=== PATIENT | male | born 1980 | race Caucasian/White ===

== ENCOUNTER 2018-02-14 08:53 | Inpatient (IN) | payer SELFPAY ==
[2018-02-14 09:14] LABS: ADD MAN DIFF? NO
[2018-02-14 09:17] LABS: BASO # 0.1 x10^3/uL (0.0-0.2); BASO % 1 % (0-3); EOS # 0.4 x10^3/uL (0.0-0.7); EOS % 4 % (0-3); HEMATOCRIT 49.8 % (39.0-53.0); HEMOGLOBIN 16.7 g/dL (13.0-17.5); LYMPH # 2.1 x10^3/uL (1.0-4.8); LYMPH % 21 % (24-48); MEAN CORPUSCULAR HEMOGLOBIN 30 pg (25-35); MEAN CORPUSCULAR HGB CONC 34 g/dL (31-37); MEAN CORPUSCULAR VOLUME 89 fL (79-100); MONO # 0.9 x10^3/uL (0.0-1.1); MONO % 9 % (0-9); NEUT # 6.6 x10^3uL (1.8-7.7); NEUT % 66 % (31-73); PLATELET COUNT 459 x10^3/uL (140-400); RED BLOOD COUNT 5.61 x10^6/uL (4.30-5.70); RED CELL DISTRIBUTION WIDTH 13.8 % (11.5-14.5)
[2018-02-14 09:17] LABS: TROPONIN BY ISTAT 0.39 ng/ml (<0.08)
[2018-02-14 09:33] LABS: ANION GAP 8 (6-14); BLOOD UREA NITROGEN 19 mg/dL (8-26); BUN/CREATININE RATIO 15 (6-20); CARBON DIOXIDE 29 mmol/L (21-32); CHLORIDE 102 mmol/L (98-107); CREATININE 1.3 mg/dL (0.7-1.3); GFR 62.5; GLUCOSE 96 mg/dL (70-99); POTASSIUM 4.4 mmol/L (3.5-5.1); SODIUM 139 mmol/L (136-145)
[2018-02-14 09:34] LABS: INR 1.1 (0.8-1.1); PROTHROMBIN TIME PATIENT 13.5 SEC (11.7-14.0)
[2018-02-14 09:37] LABS: D-DIMER 0.34 ug/mlFEU (0.00-0.50)
[2018-02-14 09:39] LABS: ALBUMIN 4.5 g/dL (3.4-5.0); ALBUMIN/GLOBULIN RATIO 1.3 (1.0-1.7); ALK PHOS 97 U/L (46-116); ALT (SGPT) 20 U/L (16-63); AST (SGOT) 26 U/L (15-37); LIPASE 103 U/L (73-393); TOTAL BILIRUBIN 0.9 mg/dL (0.2-1.0); TOTAL PROTEIN 8.1 g/dL (6.4-8.2)
[2018-02-14 09:43] LABS: TROPONINI 4.922 ng/mL (0.000-0.055)
[2018-02-14 09:46] LABS: NT-PRO BNP 327 pg/mL (0-124)
[2018-02-14 09:46] LABS: CKMB INDEX 4.5 % (0-4); CKMB MASS 7.3 ng/mL (0.0-3.6); CREATINE KINASE 161 U/L (39-308)
[2018-02-14 09:48] LABS: THYROID STIM HORMONE (TSH) 1.995 uIU/mL (0.358-3.74)
[2018-02-14] MEDS: ONDANSETRON PF 4 MG/2 ML VIAL. IV (09:55)
[2018-02-14] MEDS: ASPIRIN 325 MG TABLET PO (09:57)
[2018-02-14] MEDS: NITROGLYCERIN SUBLINGUAL 0.4 MG BOTTLE OF 25. SL ×2 (09:58→10:06)
[2018-02-14] MEDS ORDERED: IODIXANOL 320 MG/ML 100 ML VIAL. ×2 (09:59→10:18)
[2018-02-14] MEDS ORDERED: LIDOCAINE 2% 20 ML VIAL. (09:59)
[2018-02-14] MEDS ORDERED: MIDAZOLAM HCL/PF 5 MG/5 ML VIAL. (10:03)
[2018-02-14] MEDS ORDERED: fentaNYL PF VIAL 100 MCG/2 ML VIAL (10:03)
[2018-02-14] MEDS ORDERED: HEPARIN for IV BOLUS 10,000 UNIT/10 ML VIAL. ×2 (10:06→10:15)
[2018-02-14] MEDS: HEPARIN for IV BOLUS 10,000 UNIT/10 ML VIAL. IV ×2 (10:10→11:18)
[2018-02-14] MEDS ORDERED: ONDANSETRON PF 4 MG/2 ML VIAL. IV ×2 (10:15→11:30)
[2018-02-14] MEDS ORDERED: MORPHINE SULFATE 2 MG/ML DISP.SYRIN. IV (10:15)
[2018-02-14 10:26] LABS: CHOLESTEROL 168 mg/dL (0-200); HDLC 36 mg/dL (40-60); LDLC 118 mg/dL (0-100); NON-HDL CHOLESTEROL 132 mg/dL (0-129); TRIGLYCERIDES 71 mg/dL (0-150); VLDLC 14 mg/dL (0-40)
[2018-02-14 10:27] LABS: CHOLESTEROL/HDL RATIO 4.7
[2018-02-14] MEDS ORDERED: TIROFIBAN 12.5MG -0.9% NS 250 ML IV (10:33)
[2018-02-14] MEDS ORDERED: CONTRAST GIVEN. MC (10:45)
[2018-02-14] MEDS ORDERED: TICAGRELOR 90 MG TABLET. (10:57)
[2018-02-14] MEDS: IODIXANOL 320 MG/ML 100 ML VIAL. IART (11:17)
[2018-02-14] MEDS: LIDOCAINE 2% 20 ML VIAL. IJ (11:17)
[2018-02-14] MEDS: TIROFIBAN 12.5MG -0.9% NS 250 ML IV (11:19)
[2018-02-14] MEDS: ASPIRIN CHEWABLE 81 MG TABLET. PO (11:20)
[2018-02-14] MEDS: fentaNYL PF VIAL 100 MCG/2 ML VIAL IV (11:21)
[2018-02-14] MEDS: TICAGRELOR 90 MG TABLET. PO (11:21)
[2018-02-14] MEDS ORDERED: LIDOCAINE 2% 100 MG/5 ML SYRINGE. IV (11:30)
[2018-02-14] MEDS ORDERED: NITROGLYCERIN SUBLINGUAL 0.4 MG BOTTLE OF 25. SL (11:30)
[2018-02-14] MEDS ORDERED: AMIODARONE 150 MG in IV DEXTROSE 5% 100ML 100 ML IV (11:30)
[2018-02-14] MEDS ORDERED: ATROPINE 0.5 MG/5 ML DISP.SYRINGE. IV (11:30)
[2018-02-14] MEDS ORDERED: fentaNYL PF VIAL 100 MCG/2 ML VIAL IV (11:30)
[2018-02-14] MEDS ORDERED: 0.9 % SODIUM CHLORIDE 10 ML DISP.SYRIN. IV (11:30)
[2018-02-14] MEDS ORDERED: ACETAMINOPHEN 325 MG TABLET. PO (11:30)
[2018-02-14] MEDS ORDERED: oxyCODONE/APAP 5/325 1 TAB TABLET PO ×2 (11:30)
[2018-02-14 16:53] LABS: TROPONINI 4.957 ng/mL (0.000-0.055)
[2018-02-14] MEDS: IV NORMAL SALINE 1000ML BAG 1,000 ML IV (17:18)
[2018-02-14 17:37] LABS: BILIRUBIN,URINE NEGATIVE (NEG); CLARITY,URINE CLEAR; COLOR,URINE YELLOW; GLUCOSE,URINE NEGATIVE (NEG); NITRITE,URINE NEGATIVE (NEG); PROTEIN,URINE NEGATIVE (NEG-TRACE)
[2018-02-14 17:43] LABS: BARBITURATES NEG (NEG); BENZODIAZEPINES NEG (NEG); CANNABINOIDS POS (NEG); COCAINE NEG (NEG); METHADONE NEG (NEG); OPIATES NEG (NEG); PHENCYCLIDINE NEG (NEG)
[2018-02-14 17:45] LABS: AMPHETAMINE/METHAMPHETAMINE NEG (NEG); ETHANOL, URINE NEG (NEG)
[2018-02-14 17:47] LABS: BACTERIA,URINE 0 /HPF (0-FEW); RBC,URINE OCC /HPF (0-2); SQUAMOUS EPITHELIAL CELL,UR FEW /LPF; WBC,URINE RARE /HPF (0-4)
[2018-02-14] MEDS: METOPROLOL TART IMMED RELEASE 25 MG TABLET. PO (20:49)
[2018-02-14] MEDS: ATORVASTATIN CALCIUM 20 MG TABLET PO (20:50)
[2018-02-14 22:19] LABS: MRSA BY PCR Negative (Negative)
[2018-02-15] MEDS: TIROFIBAN 12.5MG -0.9% NS 250 ML IV (03:47)
[2018-02-15 04:52] LABS: ADD MAN DIFF? NO
[2018-02-15 05:00] LABS: BASO # 0.1 x10^3/uL (0.0-0.2); BASO % 1 % (0-3); EOS # 0.4 x10^3/uL (0.0-0.7); EOS % 3 % (0-3); HEMATOCRIT 43.6 % (39.0-53.0); HEMOGLOBIN 14.8 g/dL (13.0-17.5); LYMPH # 2.3 x10^3/uL (1.0-4.8); LYMPH % 20 % (24-48); MEAN CORPUSCULAR HEMOGLOBIN 30 pg (25-35); MEAN CORPUSCULAR HGB CONC 34 g/dL (31-37); MEAN CORPUSCULAR VOLUME 88 fL (79-100); MONO % 9 % (0-9); NEUT # 7.9 x10^3uL (1.8-7.7); NEUT % 67 % (31-73); PLATELET COUNT 404 x10^3/uL (140-400); RED BLOOD COUNT 4.97 x10^6/uL (4.30-5.70); RED CELL DISTRIBUTION WIDTH 13.9 % (11.5-14.5); WHITE BLOOD COUNT 11.8 x10^3/uL (4.0-11.0)
[2018-02-15 05:14] LABS: ANION GAP 8 (6-14); BLOOD UREA NITROGEN 15 mg/dL (8-26); CARBON DIOXIDE 25 mmol/L (21-32); CHLORIDE 107 mmol/L (98-107); CREATININE 1.1 mg/dL (0.7-1.3); GFR 75.7; GLUCOSE 106 mg/dL (70-99); MAGNESIUM 1.8 mg/dL (1.8-2.4); POTASSIUM 4.1 mmol/L (3.5-5.1); SODIUM 140 mmol/L (136-145)
[2018-02-15 05:21] LABS: TROPONINI 6.772 ng/mL (0.000-0.055)
[2018-02-15] MEDS: ASPIRIN ENTERIC COATED 81 MG TABLET.DR. PO (08:46)
[2018-02-15] MEDS: METOPROLOL TART IMMED RELEASE 25 MG TABLET. PO ×2 (08:47→21:25)
[2018-02-15] MEDS: TICAGRELOR 90 MG TABLET. PO ×2 (08:47→21:30)
[2018-02-15] MEDS: LISINOPRIL 5 MG TABLET. PO (09:00)
[2018-02-15] MEDS: ATORVASTATIN CALCIUM 20 MG TABLET PO (21:25)
[2018-02-16] MEDS: ASPIRIN ENTERIC COATED 81 MG TABLET.DR. PO (08:40)
[2018-02-16] MEDS: TICAGRELOR 90 MG TABLET. PO (08:41)
[2018-02-16] MEDS: LISINOPRIL 5 MG TABLET. PO (08:41)
[2018-02-16] MEDS: METOPROLOL TART IMMED RELEASE 25 MG TABLET. PO (09:00)
== END 2018-02-16 11:46 | disposition home or self-care (01) | DRG 247 ==
LOC: ER 08:53 → 2 SOUTH 02-15 12:04 → 1 WEST ICU 10:07
PROC: 027034Z Dilation of Coronary Artery, One Artery with Drug-eluting Intraluminal Device, Percutaneous Approach (ICD-10-PCS; principal; 2018-02-14)
PROC: B2111ZZ Fluoroscopy of Multiple Coronary Arteries using Low Osmolar Contrast (ICD-10-PCS; 2018-02-14)
PROC: 4A023N7 Measurement of Cardiac Sampling and Pressure, Left Heart, Percutaneous Approach (ICD-10-PCS; 2018-02-14)
PROC: B2151ZZ Fluoroscopy of Left Heart using Low Osmolar Contrast (ICD-10-PCS; 2018-02-14)
DX: I21.4 Non-ST elevation (NSTEMI) myocardial infarction (principal); E78.5 Hyperlipidemia, unspecified; F12.90 Cannabis use, unspecified, uncomplicated; F17.210 Nicotine dependence, cigarettes, uncomplicated; I10 Essential (primary) hypertension; Z82.49 Family history of ischemic heart disease and other diseases of the circulatory system; Z98.61 Coronary angioplasty status; I24.9 Acute ischemic heart disease, unspecified
CPT/HCPCS: 36415; 71045; 80048; 80053; 80061; 80307; 81001; 82553; 83690; 83735; 83880; 84443; 84484; 85025; 85379; 85610; 87641; 92928; 93005; 93306; 93458; 96374; 96375; 99285; 99285-25; 99406; C1725; C1769; C1874; C1887; C1892; G0269; J1265; J1644; J2001; J2405; J3010; J7030

== ENCOUNTER → 2019-10-03 | Outpatient (CLI) | payer MEDICAID ==
[2018-02-16 08:41] VITALS: BP 107/59
[~2019-10-03] MED LIST: ASPI-612 PO; ATOR20TA58 PO; LISI-338 PO; METO25TA4 PO; NITR0.4T24 SL; REGADENOSON 0.4 MG/5 ML DISP.SYRIN. IV ONE; TICA90TA PO
[2019-10-03 10:15] LABS: ALBUMIN 4.3 g/dL (3.4-5.0); CALCIUM 9.1 mg/dL (8.5-10.1); CHOLESTEROL/HDL RATIO 3.9; DIRECT BILIRUBIN 0.2 mg/dL (0.0-0.2); GFR 83.6; POTASSIUM 4.6 mmol/L (3.5-5.1); TOTAL BILIRUBIN 0.8 mg/dL (0.2-1.0); TOTAL PROTEIN 7.9 g/dL (6.4-8.2)
--- NOTE | 2019-10-03 13:49 | RAD ---
MR#: [id number] Date of Study: 10/03/2019 Ordering Physician: NATHAN POLLOCK, Referring Physician: NOA RING Tech: JYOTI Webb APPROVED REPORT Test Type: Pharmacological Stress Nurse/Tech: Syeda Morales R.N. Test Indications: chest pain Cardiac History: stent 2019 Medications: see ehr Medical History: see ehr Resting ECG: sr Resting Heart Rate: 73 bpm Resting Blood Pressure: 122/67mmHg Pretest Chest Pain: No chest pain Nurse/Tech Notes lungs cta, heart tones regular Consent: The procedure was explained to the patient in lay terms. Informed consent was witnessed. Avtar eout was entered into [employer] History and Stress Test performed by SCOTTIE Noriega, AMAN (R) (N) Pharm. Details Pharmacologic stress testing was performed using 0.4mg per 5ml of regadenoson given intravenously ove r 7-10 seconds. Stress Symptoms No chest pain or symptoms.Nausea, vomiting, Flushing POST EXERCISE Reason for Termination: Infusion complete Target HR: No Max HR: 119 bpm Max Blood Pressure: 122/67mmHg Chest Pain: No. Arrhythmia: No. ST Change: No. INTERPRETATION Stress EKG Conclusion: The resting EKG showed a sinus rhythm and nonspecific ST segment changes. The stress EKG shows no significant changes from baseline. No EKG evidence of stressed induced ischemia. Imaging Protocol IMAGE PROTOCOL: Rest Tc-99m/stress Tc-99m 1 day Rest: Stress: Viability: Radiopharm.Tc99m [id number] Sestamibi Dose10.8mCi 33mCi Duration 15min. 13min. Img Date 10/03/2019 10/03/2019 Inj-Img [id number]. 60min. Rest Admin Site:IV - Right AntecubitalAdministrator:RT Bunny (R)(N) Stress Admin Site: IV - Right AntecubitalAdministrator: SCOTTIE Noriega, ARRT (R)(N) STRESS DATA End Diast. Vol.114.0mlLVEDV index BSA61.0ml End Syst. Vol.44.0mlLVESV index BSA23.0ml Myocardial Byfb462.0gEject. Fyxgqrbn15.0% Stress Scores Regional WT1.00Summed WT6.00 Regional WM0.00Summed WM10.00 LV Perfusion The stress scans show a slight inferior wall defect. The rest scans show a slight inferior wall defect. Nuclear imaging shows no evidence of reversible ischemia. Imaging shows a slight fixed inferior wall defect with normal LV systolic function most consistent wi th a technical artifact. Wall Motion Trigger systolic function is normal with no regional wall motion abnormalities and ejection fraction of 61%. LV Perf. Quant 17 Seg. SSS1.00 17 Seg. SRS2.00 17 Seg. SDS0.00 Stress Defect Extent (% LAD)0.00Rest Defect Extent (% LAD)2.50Rev. Defect Extent (% LAD)0.00 Stress Defect Extent (% LCX) 0.00Rest Defect Extent (% LCX)1.30Rev. Defect Extent (% LCX)0.00 Stress Defect Extent (% RCA)17.80Rest Defect Extent (% RCA)17.80Rev. Defect Extent (% RCA)3.30 Stress Defect Extent (% VERENA)4.10Rest Defect Extent (% VERENA)7.40Rev. Defect Extent (% VERENA)0.70 Conclusion 1. No EKG evidence of stress-induced ischemia. 2. Nuclear imaging shows no reversible ischemia. 3. Nuclear imaging shows a slight fixed inferior wall defect most consistent with a technical defect although a slight inferior infarct cannot be totally excluded. 4. Normal left ventricular systolic function with no regional wall motion abnormalities and an ejecti on fraction of 61%. 5. Moderately low to low risk Lexiscan nuclear stress test with no reversible ischemia and intact LV systolic function. Signed by : Nathan Pollock MD Electronically Approved : 10/03/2019 13:49:11
== END | disposition home or self-care (01) ==
LOC: NM 10-03 09:30
PROVIDERS: ATTEND Internal Medicine Cardiovascular Disease
DX: I25.10 Atherosclerotic heart disease of native coronary artery without angina pectoris (principal); E78.5 Hyperlipidemia, unspecified; Z79.02 Long term (current) use of antithrombotics/antiplatelets
CPT/HCPCS: 36415; 78452; 80048; 80061; 80076; 93017; A9500; J2785